=== PATIENT | female | born 1990 ===

== ENCOUNTER 2018-07-25 16:53 | Emergency (ER) | payer OTHER ==
--- NOTE | 2018-07-25 17:11 | C.PDOC ---
History Of Present Illness Patient presentsto ED c/o worsening RLQ with pain and nunbness/tingling radiating down the right leg since wednesday. Patient is s/p lap appy at [facility] in April 2018. She states she felt well after the surgery, and has followed up with the surgeon as instructed. She denies fever, vomiting, diarrhea, dysuria/hematuria. According to patient, her current pain is the same as when she had appendicitis (including pain and tingling down the right leg). general surgeon: Dr. Gustafson Time Seen by Provider: 07/25/18 17:05 Chief Complaint (Nursing): Abdominal Pain History Per: Patient, Family History/Exam Limitations: no limitations Onset/Duration Of Symptoms: Days (4) Current Symptoms Are (Timing): Still Present Severity: Mild Location Of Pain/Discomfort: RLQ Quality Of Discomfort: "Pain" Associated Symptoms: denies: Fever, Chills, Nausea, Vomiting, Diarrhea, Urinary Symptoms Past Medical History Reviewed: Historical Data, Nursing Documentation, Vital Signs Vital Signs: Last Vital Signs Temp 98.6 F 07/25/18 16:57 Pulse 89 07/25/18 16:57 Resp 18 07/25/18 16:57 BP 127/83 07/25/18 16:57 Pulse Ox 98 07/25/18 16:57 - Medical History PMH: No Chronic Diseases Surgical History: Appendectomy Family History: States: No Known Family Hx - Social History Hx Alcohol Use: No Hx Substance Use: No - Immunization History Hx Tetanus Toxoid Vaccination: No Hx Influenza Vaccination: No Hx Pneumococcal Vaccination: No Review Of Systems Constitutional: Negative for: Fever, Chills Gastrointestinal: Positive for: Abdominal Pain. Negative for: Nausea, Vomiting, Diarrhea Genitourinary: Negative for: Dysuria, Hematuria, Vaginal Discharge, Vaginal Bleeding Musculoskeletal: Positive for: Leg Pain (right leg pain and numbness/tingling) Physical Exam - Physical Exam Appears: Well, Non-toxic, In Acute Distress (in mild pain ) Skin: Normal Color, Warm, Dry Eye(s): bilateral: Normal Inspection Oral Mucosa: Moist Cardiovascular: Rhythm Regular Respiratory: Normal Breath Sounds, No Rales, No Rhonchi, No Wheezing Gastrointestinal/Abdominal: Bowel Sounds, Soft, Tenderness ((+) mild RLQ TTP), No Guarding, No Rebound, Other (no inguinal hernias, no inguinal lymphadenopathy) Back: Normal Inspection, No CVA Tenderness, No Vertebral Tenderness Extremity: Normal ROM, No Pedal Edema, No Calf Tenderness, No Deformity Pulses: Left Dorsalis Pedis: Normal, Right Dorsalis Pedis: Normal Neurological/Psych: Oriented x3, Normal Motor, Normal Sensation ED Course And Treatment - Laboratory Results Result Diagrams: 07/25/18 17:36 07/25/18 17:36 O2 Sat by Pulse Oximetry: 98 (RA) Pulse Ox Interpretation: Normal Progress Note: Blood work, UA, Upreg and CT scan abd/pelvis ordered and reviewed. Patient given IV NS bolus, IV toradol. Disposition - Disposition Disposition Time: 19:00 Condition: STABLE Forms: [employer] [facility] (Amharic) - Clinical Impression Clinical Impression: RLQ abdominal pain, Radiculopathy of leg Physician Patient Turnover Patient Signed Over To: Declan Frederick Handoff Comments: pending CT scan, reassessment
[2018-07-25 17:39] LABS: BASO % 0.3 % (0.0-2.0); EOS # 0.3 K/uL (0.0-0.7); HEMOGLOBIN 16.1 g/dL (11.0-16.0); LYMPH # 2.3 K/uL (1.0-4.3); LYMPH % 33.7 % (20.0-40.0); MEAN CELL VOLUME 94.9 fL (81.0-99.0); MEAN CORPUSCULAR HEMOGLOBIN 32.1 pg (27.0-31.0); MEAN CORPUSCULAR HGB CONC 33.8 g/dL (33.0-37.0); MEAN PLATELET VOLUME 10.4 fL (7.2-11.7); MONO # 0.5 K/uL (0.0-0.8); MONO % 7.1 % (0.0-10.0); NEUT # 3.8 K/uL (1.8-7.0); NEUT % 54.9 % (50.0-75.0); NRBC % 0.1 % (0.0-2.0); RBC 5.01 Mil/uL (3.80-5.20); RED CELL DISTRIBUTION WIDTH 12.1 % (11.5-14.5); WHITE BLOOD COUNT 6.8 K/uL (4.8-10.8)
[2018-07-25] MEDS ORDERED: Sodium Chloride 0.9% 1,000 ML IV ONE (17:40)
[2018-07-25 17:54] LABS: BLOOD UREA NITROGEN 18 mg/dL (7-17); CALCIUM 9.3 mg/dl (8.6-10.4); GFR NON-AFRICAN AMERICAN > 60; LIPASE 154 U/L (23-300)
[2018-07-25 17:56] LABS: ALB/GLOB RATIO 1.2 (1.0-2.1); ALT/SGPT < 6 U/L (9-52); AST/SGOT 47 U/L (14-36)
[2018-07-25] MEDS ORDERED: Iohexol 240 (50 ml) ONE (17:59)
[2018-07-25 18:11] LABS: HCG,QUALITATIVE URINE NEGATIVE (NEGATIVE)
[2018-07-25 18:12] LABS: SQUAMOUS EPITHIAL 2 /hpf (0-5); URINE BILIRUBIN NEGATIVE (NEGATIVE); URINE BLOOD 1+ (NEGATIVE); URINE CLARITY Hazy (Clear); URINE COLOR Yellow (YELLOW); URINE GLUCOSE (UA) NORMAL (Normal); URINE LEUKOCYTE ESTERASE TRACE Leu/uL (Negative); URINE PROTEIN 1+ mg/dL (NEGATIVE); URINE UROBILINOGEN NORMAL mg/dL (0.2-1.0)
[2018-07-25 19:50] VITALS: O2SAT 100
[2018-07-25] MEDS ORDERED: Iodixanol 320 MG/ML 100 ML BOTTLE IV ONE (20:02)
[2018-07-25 22:54] VITALS: BP 110/73; PULSE 89; RESP 16; TEMP 98.9
--- NOTE | 2018-07-26 10:05 | CT ---
Date of service: 07/25/2018 PROCEDURE: CT Abdomen and Pelvis with contrast HISTORY: Right lower quadrant abdominal pain, status post appendectomy April 2018 COMPARISON: None. TECHNIQUE: Multiple contiguous axial images were performed through the abdomen and pelvis with the use of intravenous contrast. Subsequently, sagittal and coronal reformatted images were obtained. Radiation dose: Total exam DLP = 943.05 mGy-cm. This CT exam was performed using one or more of the following dose reduction techniques: Automated exposure control, adjustment of the mA and/or kV according to patient size, and/or use of iterative reconstruction technique. FINDINGS: LOWER THORAX: Mild atelectasis at the lung bases. LIVER: Unremarkable. No gross lesion or ductal dilatation. Mild intrahepatic biliary ductal dilatation. GALLBLADDER AND BILE DUCTS: Partially contracted gallbladder. PANCREAS: Unremarkable. No gross lesion or ductal dilatation. SPLEEN: Unremarkable. ADRENALS: Unremarkable. No mass. KIDNEYS AND URETERS: Unremarkable. No hydronephrosis. No solid mass. VASCULATURE: Unremarkable. No aortic aneurysm. No aortic atherosclerotic calcification or mural plaque present. BOWEL: Few distended loops of small bowel seen within the mid and lower abdomen. Thickened and enhancing loops of bowel seen at the level of the distal ileum/terminal ileum which may represent some acute infectious and or inflammatory changes. Clinical correlation. Postsurgical changes at the level of the cecum from prior appendectomy. APPENDIX: Postsurgical changes at the level of the cecum from prior appendectomy. PERITONEUM: Unremarkable. No free fluid. No free air. LYMPH NODES: Few shotty para-aortic and inguinal lymph nodes. Few shotty mesenteric lymph nodes. BLADDER: Unremarkable. REPRODUCTIVE: Unremarkable. BONES: Degenerative changes in the spine. Schmorl's node formation with some sclerosis noted at the inferior endplate of the L1 vertebral body. OTHER FINDINGS: None. IMPRESSION: Few distended loops of small bowel seen within the mid and lower abdomen. Thickened and enhancing loops of bowel seen at the level of the distal ileum/terminal ileum which may represent some acute infectious and or inflammatory changes. Clinical correlation. Postsurgical changes at the level of the cecum from prior appendectomy. A preliminary report was generated at 10:14 p.m. on 07/25/[address] Rell Velazquez from [employer].
== END 2018-07-25 22:54 | disposition home or self-care (01) ==
LOC: C.ER 16:53
DX: K52.9 Noninfective gastroenteritis and colitis, unspecified (principal); R10.31 Right lower quadrant pain; M54.10 Radiculopathy, site unspecified
CPT/HCPCS: 74177; 80053; 81001; 83690; 84703; 85025; 96361; 96374; 99284; J1885; J7030; Q9967

== ENCOUNTER 2018-07-28 11:09 | Emergency (ER) | payer OTHER ==
[2018-07-28 11:44] VITALS: RESP 18
--- NOTE | 2018-07-28 12:48 | C.PDOC ---
History Of Present Illness 28 year old female presents to the ED for evaluation of right lower back pain radiating down right leg that has been ongoing for around 1 week. Patient was seen in the ED on 07/25 for the similar pain and right lower quadrant pain. She was diagnosed with radiculopathy and ileitis and given Rx for Flagyl. Of note, patient underwent an appendectomy in April 2018. Patient returns to the ED today because she states the doctor told her not to take any anti-inflammatory medications and she still has pain. Patient denies any new symptoms at t his time. Time Seen by Provider: 07/28/18 12:14 Chief Complaint (Nursing): Lower Extremity Problem/Injury History Per: Patient History/Exam Limitations: no limitations Onset/Duration Of Symptoms: Days Current Symptoms Are (Timing): Still Present Past Medical History Reviewed: Historical Data, Nursing Documentation, Vital Signs Vital Signs: Last Vital Signs Temp 98 F 07/28/18 11:40 Pulse 93 H 07/28/18 11:40 Resp 18 07/28/18 11:40 BP 120/77 07/28/18 11:40 Pulse Ox 99 07/28/18 11:40 - Medical History PMH: No Chronic Diseases Surgical History: Appendectomy Family History: States: Unknown Family Hx - Social History Hx Alcohol Use: No Hx Substance Use: No - Immunization History Hx Tetanus Toxoid Vaccination: No Hx Influenza Vaccination: No Hx Pneumococcal Vaccination: No Review Of Systems Musculoskeletal: Positive for: Back Pain (right-sided lower ) Neurological: Negative for: Weakness, Numbness Physical Exam - Physical Exam Appears: Non-toxic, No Acute Distress Skin: Normal Color, Warm, Dry Head: Atraumatic, Normacephalic Eye(s): bilateral: Normal Inspection Back: Other (right PCIS tenderness ) Extremity: Normal ROM, Capillary Refill (less than 2 seconds ) Neurological/Psych: Normal Speech, Normal Cognition, Normal Motor, Normal Sensation ED Course And Treatment O2 Sat by Pulse Oximetry: 99 (on RA) Pulse Ox Interpretation: Normal Medical Decision Making Medical Decision Making: Naproxen PO given. Patient advised that she can take anti-inflammatory medication to manage her pain, and that she may have misunderstood her doctor. On reassessment, patient is resting comfortably, showing no signs fo distress and reports an improvement in her pain. Patient is ambulatory in the ED without distress and is stable for discharge. She is advised to f/u with her PMD within 1-2 days for further evaluation. Return if worse. Disposition Counseled Patient/Family Regarding: Diagnosis, Need For Followup - Disposition Referrals: [facility] [Outside] [facility] [Outside] Disposition: HOME/ ROUTINE Disposition Time: 12:46 Condition: STABLE Additional Instructions: NIKO ELY, thank you for letting us take care of you today. Your provider was Nuris Moreland MD and you were treated for RIGHT LEG PAIN. The emergency medical care you received today was directed at your acute symptoms. If you were prescribed any medication, please fill it and take as directed. It may take several days for your symptoms to resolve. Return to the Emergency Department if your symptoms worsen, do not improve, or if you have any other problems. Please contact your doctor or call one of the physicians/clinics you have been referred to that are listed on the Patient Visit Information form that is included in your discharge packet. Bring any paperwork you were given at discharge with you along with any medications you are taking to your follow up visit. Our treatment cannot replace ongoing medical care by a primary care provider outside of the emergency department. Thank you for allowing the [facility] team to be part of your care today. Prescriptions: Naproxen [Naprosyn] 500 mg PO BID PRN #30 tablet PRN Reason: Pain, Moderate (4-7) Instructions: Radiculopathy (DC) Forms: Gen Discharge Inst Bhutanese, [employer] (Bhutanese) Print Language: NIGERIEN - POA Present On Arrival: None - Clinical Impression Clinical Impression: Radiculopathy of leg - Scribe Statement The provider has reviewed the documentation as recorded by the Scribe (Robyn Winkler) Provider Attestation: All medical record entries made by the Scribe were at my direction and personally dictated by me. I have reviewed the chart and agree that the record accurately reflects my personal performance of the history, physical exam, medical decision making, and the department course for this patient. I have also personally directed, reviewed, and agree with the discharge instructions and disposition.
[2018-07-28] MEDS ORDERED: Naproxen 550 mg Tab PO STA (12:49)
[2018-07-28] MEDS ORDERED: Naproxen 550 mg Tab PO ONE (13:10)
[2018-07-28 13:26] VITALS: BP 105/65; PULSE 80; TEMP 97.9
[2018-07-28 16:41] VITALS: O2SAT 99
== END 2018-07-28 13:26 | disposition home or self-care (01) ==
LOC: C.ER 11:09
DX: M54.10 Radiculopathy, site unspecified (principal)

== ENCOUNTER → 2018-08-05 | Outpatient (CLI) | payer OTHER | LOC: C.MRIC 08:28 | DX: M54.10 Radiculopathy, site unspecified (principal) ==

== ENCOUNTER 2018-09-22 16:00 | Emergency (ER) | payer OTHER | END 2018-09-22 17:15 | disposition home or self-care (01) | LOC: C.ER 16:00 | DX: M51.27 Other intervertebral disc displacement, lumbosacral region (principal) | CPT/HCPCS: 81025; 96372; 99283; J1885 ==